=== PATIENT | female | born 1965 | race Caucasian/White ===

== ENCOUNTER 2022-06-01 21:14 | Emergency (ER) | payer OTHER ==
[~2022-06-01] VITALS: Ht 170.2 cm; Wt 52.2 kg
[2022-06-01 21:17] VITALS: BP 131/77
[2022-06-02] MEDS: KETOROLAC 60 MG/2 ML VIAL IM ONE (00:06)
[2022-06-02] MEDS ORDERED: NAPR-54 PO (00:54)
[2022-06-02 01:00] VITALS: BP 131/77
== END 2022-06-02 01:00 | disposition home or self-care (01) ==
LOC: MED 21:14
DX: M54.32 Sciatica, left side (principal); J44.9 Chronic obstructive pulmonary disease, unspecified; F17.210 Nicotine dependence, cigarettes, uncomplicated
CPT/HCPCS: 96372; 99283; J1885